=== PATIENT | female | born 1960 | race Caucasian/White ===

== ENCOUNTER 2020-06-02 05:55 | Day surgery (SDC) | payer OTHER ==
[~2020-06-02] VITALS: Ht 162.6 cm; Wt 81.6 kg
[~2020-06-02 05:55] MED LIST: AMLO5TAB4 PO; LEVO137T20 PO
[2020-06-02] MEDS ORDERED: CEFAZOLIN SOD 1 GM in D5W 50 ML IV ONE (07:00)
[2020-06-02] MEDS ORDERED: fentaNYL CITRATE 250 MCG/5 ML AMP IV ONE (07:32)
[2020-06-02] MEDS ORDERED: KETOROLAC TROMETHAMINE 30 MG VIAL IVP ONE (07:32)
[2020-06-02] MEDS ORDERED: BUPIVACAINE /PF 0.25% 30 ML VIAL INJ ONE (07:32)
[2020-06-02] MEDS ORDERED: LIDOCAINE 1% 10 MG/ML, 20 ML MDV IM ONE (07:32)
[2020-06-02] MEDS ORDERED: DEXAMETHASONE SOD PHOSPHATE 4 MG/ML VIAL IVP ONE (07:32)
[2020-06-02] MEDS ORDERED: DESFLURANE 15 MIN GAS INH ONE (07:32)
[2020-06-02] MEDS ORDERED: NS 1000 ML IV.SOLN IV ONE (07:32)
[2020-06-02] MEDS ORDERED: ONDANSETRON HCL 4 MG/2 ML VIAL IVP ONE ×2 (07:32→12:00)
[2020-06-02] MEDS ORDERED: SUGAMMADEX SODIUM 200 MG/2 ML VIAL IV ONE (07:32)
[2020-06-02] MEDS ORDERED: NS IRRIG SOLN 1000 ML IR ONE (07:32)
[2020-06-02] MEDS ORDERED: MIDAZOLAM HCL 5 MG/5 ML VIAL IVP ONE (07:32)
[2020-06-02] MEDS ORDERED: ONDANSETRON HCL 4 MG/2 ML VIAL IVP PRN (08:30)
[2020-06-02] MEDS ORDERED: LABETALOL 100 MG/ 20ML VIAL IVP PRN (08:30)
[2020-06-02] MEDS ORDERED: MIDAZOLAM HCL 2 MG/2 ML VIAL (VERSED) IVP PRN (08:30)
[2020-06-02] MEDS ORDERED: METOCLOPRAMIDE HCL 10 MG/2 ML VIAL IVP PRN (08:30)
[2020-06-02] MEDS ORDERED: LR 1,000 ML IV SCH (08:30)
[2020-06-02] MEDS ORDERED: HYDROmorphone 1 MG INJ. 1 MG/ML AMPUL IVP PRN ×3 (08:30→09:00)
[2020-06-02] MEDS ORDERED: MEPERIDINE HCL/PF 25 MG/ML DISP.SYRIN IVP PRN (08:30)
[2020-06-02] MEDS ORDERED: D5/0.45 NS 1,000 ML IV SCH ×2 (09:00→11:15)
[2020-06-02] MEDS ORDERED: HYDROcodone/ACETAMIN 5-325 MG TAB (NORCO/ VICODIN) PO PRN ×2 (10:30)
[2020-06-02] MEDS ORDERED: ONDANSETRON HCL 4 MG/2 ML VIAL ONE (10:57)
[2020-06-02 12:00] VITALS: BP_SYST 116
== END 2020-06-02 11:47 | disposition home or self-care (01) ==
LOC: SMU 05:55 → SDS 05:55
PROVIDERS: ATTEND Colon & Rectal Surgery
DX: K80.10 Calculus of gallbladder with chronic cholecystitis without obstruction (principal); I10 Essential (primary) hypertension; E03.9 Hypothyroidism, unspecified; F41.9 Anxiety disorder, unspecified; M17.10 Unilateral primary osteoarthritis, unspecified knee; Z88.5 Allergy status to narcotic agent; Z79.899 Other long term (current) drug therapy; Z20.828 Contact with and (suspected) exposure to other viral communicable diseases
CPT/HCPCS: 47563; 74300; 88304; C1727; C1758; C9399; J0690; J1100; J1885; J2001; J2250; J2405; J3010; J3490; J7030; J7060; Q9967; U0003; 76000